=== PATIENT | male | born 1975 | race Caucasian/White ===

== ENCOUNTER 2022-01-30 22:30 | Emergency (ER) | payer MEDICAID ==
[2022-01-30 23:43] LABS: HEMOGLOBIN 15.9 gm/dl (14.0-17.5); RED BLOOD COUNT 4.91 M/UL (4.20-5.50); WHITE BLOOD COUNT 8.6 K/UL (4.5-11.0)
[2022-01-31 00:10] LABS: BUN/CREATININE RATIO 18 (0-10)
== END 2022-01-31 00:42 | disposition home or self-care (01) ==
LOC: ER1 22:30
PROVIDERS: Family Medicine
DX: R10.9 Unspecified abdominal pain (principal)
CPT/HCPCS: 80053; 81001; 83690; 85025; 99284